=== PATIENT | male | born 1955 | race Caucasian/White ===

== ENCOUNTER 2017-11-08 11:53 | Observation (INO) | payer OTHER ==
--- NOTE | 2017-11-08 13:53 | EDM.PDOC ---
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, working outside hospital on construction project had L arm numbness x 1h, resolved after arrival here, BP inc'd on arrival (SBP 156), then came down to 134/80 no CP, possibly slight sob, no f/c/d smokes 1 ppd poor historian trop neg, however BNP inc'd for unclear reason EKG without LVH, does show QTc 496 K and Mg are both low, likely d/t working outside in hot environments, not on diuretic d/w hospitalist Dr Vanessa who accepted in admission for r/o PA pt reluctantly agrees, has colonoscopy and repair of anal fissure tomorrow with Dr Cole, is undergoing a bowel 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 and strongly encouraged pt to stay PCP is Dr Wallace Under L upper arm & MONTOYA Pain Score (Numeric/FACES): 5 - Related Data Allergies Allergy/AdvReac Type Severity Reaction Status Date / Time No Known Allergies Allergy Verified 11/08/17 12:16 Home Meds: Home Meds Aspirin [Lo-Dose Aspirin EC] 81 mg PO DAILY 01/29/16 [History] Calcium Carbonate [Calcium] 500 mg PO DAILY 01/29/16 [History] Metoprolol Succinate 100 mg PO DAILY 01/29/16 [History] Past Medical History Cardiovascular History: Reports: Hypertension Gastrointestinal History: Reports: GERD Genitourinary History: Reports: Pyelonephritis, Renal Calculus Musculoskeletal History: Reports: Arthritis Neurological History: Reports: Migraines Psychiatric History: Reports: Addiction, Anxiety, Depression Other Psychiatric History: hx ETOH abuse Endocrine/Metabolic History: Reports: Obesity/BMI 30+, Other (See Below) Other Endocrine/Metabolic History: 'spot on R thyroid, benign' Dermatologic History: Reports: Eczema - Infectious Disease History Infectious Disease History: Reports: Chicken Pox, Mumps - Past Surgical History HEENT Surgical History: Reports: Cataract Surgery Other HEENT Surgeries/Procedures: bilat cataract Musculoskeletal Surgical History: Reports: Shoulder Surgery Other Musculoskeletal Surgeries/Procedures:: R rotator cuff surgery Social & Family History - Family History Family Medical History: Noncontributory - Tobacco Use Smoking Status *Q: Current Every Day Smoker Years of Tobacco use: 47 Packs/Tins Daily: 1 - Caffeine Use Caffeine Use: Reports: Soda - Recreational Drug Use Recreational Drug Use: No ED ROS GENERAL - Review of Systems Review Of Systems: See Below Constitutional: Reports: No Symptoms HEENT: Reports: No Symptoms Respiratory: Reports: No Symptoms Cardiovascular: Reports: No Symptoms Endocrine: Reports: No Symptoms GI/Abdominal: Reports: No Symptoms : Reports: No Symptoms Musculoskeletal: Reports: Other (left arm numb) Skin: Reports: No Symptoms Neurological: Reports: No Symptoms Psychiatric: Reports: No Symptoms Hematologic/Lymphatic: Reports: No Symptoms Immunologic: Reports: No Symptoms ED EXAM, GENERAL - Physical Exam Exam: See Below Exam Limited By: No Limitations General Appearance: Alert, WD/WN, No Apparent Distress Nose: Normal Inspection, Normal Mucosa, No Blood Throat/Mouth: Normal Inspection, Normal Lips, Normal Teeth, Normal Gums, Normal Oropharynx, Normal Voice, No Airway Compromise Head: Atraumatic, Normocephalic Neck: Normal Inspection, Supple, Non-Tender, Full Range of Motion Respiratory/Chest: No Respiratory Distress, Lungs Clear, Normal Breath Sounds, No Accessory Muscle Use, Chest Non-Tender Cardiovascular: Regular Rate, Rhythm, No Edema, No Gallop, No JVD, No Murmur, No Rub GI/Abdominal: Normal Bowel Sounds, Soft, Non-Tender, No Distention, No Mass Back Exam: Normal Inspection, Full Range of Motion, NT Extremities: Normal Inspection, Normal Range of Motion, Non-Tender, No Pedal Edema Neurological: Alert, Oriented, CN II-XII Intact, Normal Cognition, No Motor/ Sensory Deficits Psychiatric: Normal Affect, Normal Mood Skin Exam: Warm, Dry, Intact, Normal Color, No Rash Lymphatic: No Adenopathy Course - Vital Signs Last Recorded V/S: Last Vital Signs Temp 36.6 C 11/08/17 11:53 Pulse 104 H 11/08/17 11:53 Resp 18 11/08/17 11:53 BP 190/95 H 11/08/17 11:53 Pulse Ox 98 11/08/17 11:53 - Orders/Labs/Meds Orders: Active Orders 24 hr Category Date Time Status Chest 1V Frontal [CR] Stat Exams 11/08/17 12:16 Taken EKG 12 Lead [EK] Routine Ther 11/08/17 12:15 Ordered Labs: Laboratory Tests 11/08/17 11/08/17 11/08/17 Range/Units 12:32 12:32 12:32 WBC 11.7 (4.5-12.0) X10-3/uL RBC 5.39 (4.30-5.75) x10(6)uL Hgb 15.6 H (11.5-15.5) g/dL Hct 45.6 (30.0-51.3) % MCV 84.5 (80-96) fL MCH 29.0 (27.7-33.6) pg MCHC 34.3 (32.2-35.4) g/dL RDW 12.8 (11.5-15.5) % Plt Count 305 (125-369) X10(3)uL MPV 7.8 (7.4-10.4) fL Neut % (Auto) 75.0 (46-82) % Lymph % (Auto) 17.3 (13-37) % [place] % (Auto) 6.7 (4-12) % Eos % (Auto) 1 (1.0-5.0) % Baso % (Auto) 1 (0-2) % Neut # (Auto) 8.7 H (1.6-8.3) # Lymph # (Auto) 2.0 (0.6-5.0) # [place] # (Auto) 0.8 (0.0-1.3) # Eos # (Auto) 0.1 (0.0-0.8) # Baso # (Auto) 0.1 (0.0-0.2) # D-Dimer, Quantitative < 100 L (100-400) ng/mL Sodium 134 L (135-145) mmol/L Potassium 3.3 L (3.5-5.3) mmol/L Chloride 98 L (100-110) mmol/L Carbon Dioxide 24 (21-32) mmol/L BUN 17 (7-18) mg/dL Creatinine 1.1 (0.70-1.30) mg/dL Est Cr Clr Drug Dosing 71.89 mL/min Estimated GFR (MDRD) > 60 (>60) BUN/Creatinine Ratio 15.5 (9-20) Glucose 115 (80-116) mg/dL Calcium 9.4 (8.6-10.2) mg/dL Magnesium 1.7 L (1.8-2.5) mg/dL Total Bilirubin 1.0 (0.1-1.3) mg/dL AST 14 (5-25) IU/L ALT 21 (12-36) U/L Alkaline Phosphatase 108 (56-112) IU/L Troponin I (<0.017-0.056) ng/mL NT-Pro-B Natriuret Pep (<=125) pg/mL Total Protein 7.5 (6.0-8.0) g/dL Albumin 3.9 (3.2-4.6) g/dL Globulin 3.6 g/dL Albumin/Globulin Ratio 1.1 /01/19 Range/Units 12:32 WBC (4.5-12.0) X10-3/uL RBC (4.30-5.75) x10(6)uL Hgb (11.5-15.5) g/dL Hct (30.0-51.3) % MCV (80-96) fL MCH (27.7-33.6) pg MCHC (32.2-35.4) g/dL RDW (11.5-15.5) % Plt Count (125-369) X10(3)uL MPV (7.4-10.4) fL Neut % (Auto) (46-82) % Lymph % (Auto) (13-37) % [place] % (Auto) (4-12) % Eos % (Auto) (1.0-5.0) % Baso % (Auto) (0-2) % Neut # (Auto) (1.6-8.3) # Lymph # (Auto) (0.6-5.0) # [place] # (Auto) (0.0-1.3) # Eos # (Auto) (0.0-0.8) # Baso # (Auto) (0.0-0.2) # D-Dimer, Quantitative (100-400) ng/mL Sodium (135-145) mmol/L Potassium (3.5-5.3) mmol/L Chloride (100-110) mmol/L Carbon Dioxide (21-32) mmol/L BUN (7-18) mg/dL Creatinine (0.70-1.30) mg/dL Est Cr Clr Drug Dosing mL/min Estimated GFR (MDRD) (>60) BUN/Creatinine Ratio (9-20) Glucose (80-116) mg/dL Calcium (8.6-10.2) mg/dL Magnesium (1.8-2.5) mg/dL Total Bilirubin (0.1-1.3) mg/dL AST (5-25) IU/L ALT (12-36) U/L Alkaline Phosphatase (56-112) IU/L Troponin I < 0.017 L (<0.017-0.056) ng/mL NT-Pro-B Natriuret Pep 451 H (<=125) pg/mL Total Protein (6.0-8.0) g/dL Albumin (3.2-4.6) g/dL Globulin g/dL Albumin/Globulin Ratio Departure - Departure Time of Disposition: 13:54 Disposition: Refer to Observation Clinical Impression: Left arm numbness, Anginal equivalent, Elevated brain natriuretic peptide (BNP ) level, Hypokalemia, Hypomagnesemia, Prolonged QT interval, Current smoker Referrals: Preston Tavarez MD [Primary Care Provider] - - My Orders Last 24 Hours: My Active Orders 11/08/17 12:15 EKG 12 Lead [EK] Routine 11/08/17 12:16 Chest 1V Frontal [CR] Stat - Assessment/Plan Last 24 Hours: My Active Orders 11/08/17 12:15 EKG 12 Lead [EK] Routine 11/08/17 12:16 Chest 1V Frontal [CR] Stat
[2017-11-08] MEDS ORDERED: Potassium Chloride 20 MEQ Tab.ER PO ONE (13:56)
[2017-11-08] MEDS ORDERED: Magnesium Sulfate/Water 2 GM in Premix Bag 1 BAG IV ONE (13:57)
--- NOTE | 2017-11-08 14:44 | CR ---
INDICATION: Left arm numb. CHEST: A portable AP upright view of the chest 11/08/2017 was compared with , again revealing the heart to be normal in size and shape. The aorta is somewhat tortuous with minimal calcification suggested in the arch. Overlying EKG leads are noted. Lungs appear to be somewhat hyperaerated, raising question of obstructive airway disease - correlate clinically. An active infiltrate or effusion was not identified. IMPRESSION: No acute process. MTDD
[2017-11-08] MEDS ORDERED: Nitroglycerin 0.4 MG Tab.SL SL PRN (15:40)
[2017-11-08] MEDS ORDERED: Sodium Chloride 0.9% 10 ML Syringe FLUSH PRN (15:40)
[2017-11-08] MEDS ORDERED: Potassium Chloride 20 MEQ Tab.ER ONE (16:27)
[2017-11-08] MEDS ORDERED: Magnesium Sulfate/Water 50 ML ONE (16:32)
[2017-11-08] MEDS ORDERED: Aspirin 81 MG Tab.Chew PO STA (17:00)
[2017-11-08] MEDS ORDERED: Aspirin 81 MG Tab.Chew PO ONE (17:00)
--- NOTE | 2017-11-09 07:19 | PCM.HP ---
H&P History of Present Illness - General Date of Service: 11/08/17 (Patient seen, examined and HP done on day of admission. Documented late due to EMR being down.) Admit Problem/Dx: Left arm "weirdness" in the axilla. Source of Information: Patient, Provider History Limitations: Reports: Other (Unable to access old records due to EMR down. Patient speech very tangential. ) - History of Present Illness Initial Comments - Free Text/Narative: Patient is a 61-year-old male who presented on the day of admission with an hour of left axillary discomfort. It just felt "weird" under his armpit. 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 He waited about 30 minutes and it didn't go away so he presented to the emergency department for further evaluation. EKG and troponin were initially negative. He had a slightly elevated BNP, a low magnesium, and a low potassium. I was asked to see the patient and admit him for further monitoring and to rule out atypical CT. The patient had some hand numbness with this discomfort. He had a similar episode 2 years ago which was evaluated in the ER and he was discharged home with no concerns for cardiac etiology. He takes a baby aspirin at home and metoprolol 100 mg of succinate daily. He denies associated symptoms like shortness of breath, dizziness, neck or jaw pain, anterior chest discomfort, GI symptoms. He denies a history of heart attack or stroke in the past, denies a history of hyperlipidemia, denies a history of coronary artery disease in the past. Notes he has anxiety and depression with such significant mental health issues that he has been hospitalized for psychiatry in [place], although was really unable to explain to me what that hospitalization was about. He has hypertension. Social history: The patient lives alone but has a fianc that he is waiting to until he turned 64. He has 2 daughters. 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 He smokes between a half to a pack of cigarettes per day. Quit drinking alcohol 34 years ago. Denies other drug use. Family history: Denies any history of coronary artery disease in the family. As far as he knows neither his mother, father, 2 brothers, or 2 sisters had any heart attacks or strokes. His mother at 68 from some type of dementia and was in a shelter. His father in his 80s from old age. He has 2 brothers and 2 sisters both of whom are healthy although one of his sisters has bipolar disorder. Under L upper arm & MONTOYA Pain Score (Numeric/FACES): 0 - Related Data Allergies/Adverse Reactions: Allergies Allergy/AdvReac Type Severity Reaction Status Date / Time No Known Allergies Allergy Verified 11/08/17 12:16 Home Medications: Home Meds Aspirin [Lo-Dose Aspirin EC] 81 mg PO DAILY 01/29/16 [History] Calcium Carbonate [Calcium] 500 mg PO DAILY 01/29/16 [History] Metoprolol Succinate 100 mg PO DAILY 01/29/16 [History] Past Medical History Cardiovascular History: Reports: Hypertension Gastrointestinal History: Reports: GERD Genitourinary History: Reports: Pyelonephritis, Renal Calculus Musculoskeletal History: Reports: Arthritis Neurological History: Reports: Migraines Psychiatric History: Reports: Addiction, Anxiety, Depression Other Psychiatric History: hx ETOH abuse Endocrine/Metabolic History: Reports: Obesity/BMI 30+, Other (See Below) Other Endocrine/Metabolic History: 'spot on R thyroid, benign' Dermatologic History: Reports: Eczema - Infectious Disease History Infectious Disease History: Reports: Chicken Pox, Mumps - Past Surgical History HEENT Surgical History: Reports: Cataract Surgery Other HEENT Surgeries/Procedures: bilat cataract Musculoskeletal Surgical History: Reports: Shoulder Surgery Other Musculoskeletal Surgeries/Procedures:: R rotator cuff surgery Social & Family History - Family History Family Medical History: Noncontributory - Tobacco Use Smoking Status *Q: Current Every Day Smoker Years of Tobacco use: 47 Packs/Tins Daily: 1 - Caffeine Use Caffeine Use: Reports: Soda - Recreational Drug Use Recreational Drug Use: No H&P Review of Systems - Review of Systems: Review Of Systems: ROS reveals no pertinent complaints other than HPI. Exam - Exam Exam: See Below - Vital Signs Vital Signs: Last Vital Signs Temp 36.9 C 11/08/17 14:54 Pulse 98 11/08/17 14:54 Resp 14 11/08/17 14:54 BP 148/80 H 11/08/17 14:54 Pulse Ox 97 11/08/17 14:54 Weight: 94.347 kg - Exam General: Alert, Oriented, Cooperative (Although the patient is alert oriented and cooperative, his speech is tangential, it's difficult to get him back on to the topic. Somewhat circular logic or reasoning. Has times where he seems to struggle with word finding and at times takes significant repetition to answer a question.) HEENT: PERRLA, Conjunctiva Clear, Mucosa Moist & [place], Posterior Pharynx Clear Neck: Supple Lungs: Clear to Auscultation, Normal Respiratory Effort Cardiovascular: Regular Rate, Regular Rhythm, Normal S1, Normal S2 GI/Abdominal Exam: Normal Bowel Sounds, Soft, Non-Tender, No Distention Extremities: No Pedal Edema Psychiatric: Alert, Normal Affect, Normal Mood - Patient Data Lab Results Last 24 hrs: Laboratory Results - last 24 hr 11/08/17 11/08/17 11/08/17 Range/Units 12:32 12:32 12:32 WBC 11.7 (4.5-12.0) X10-3/uL RBC 5.39 (4.30-5.75) x10(6)uL Hgb 15.6 H (11.5-15.5) g/dL Hct 45.6 (30.0-51.3) % MCV 84.5 (80-96) fL MCH 29.0 (27.7-33.6) pg MCHC 34.3 (32.2-35.4) g/dL RDW 12.8 (11.5-15.5) % Plt Count 305 (125-369) X10(3)uL MPV 7.8 (7.4-10.4) fL Neut % (Auto) 75.0 (46-82) % Lymph % (Auto) 17.3 (13-37) % [place] % (Auto) 6.7 (4-12) % Eos % (Auto) 1 (1.0-5.0) % Baso % (Auto) 1 (0-2) % Neut # (Auto) 8.7 H (1.6-8.3) # Lymph # (Auto) 2.0 (0.6-5.0) # [place] # (Auto) 0.8 (0.0-1.3) # Eos # (Auto) 0.1 (0.0-0.8) # Baso # (Auto) 0.1 (0.0-0.2) # D-Dimer, Quantitative < 100 L (100-400) ng/mL Sodium 134 L (135-145) mmol/L Potassium 3.3 L (3.5-5.3) mmol/L Chloride 98 L (100-110) mmol/L Carbon Dioxide 24 (21-32) mmol/L BUN 17 (7-18) mg/dL Creatinine 1.1 (0.70-1.30) mg/dL Est Cr Clr Drug Dosing 71.89 mL/min Estimated GFR (MDRD) > 60 (>60) BUN/Creatinine Ratio 15.5 (9-20) Glucose 115 (80-116) mg/dL Calcium 9.4 (8.6-10.2) mg/dL Magnesium 1.7 L (1.8-2.5) mg/dL Total Bilirubin 1.0 (0.1-1.3) mg/dL AST 14 (5-25) IU/L ALT 21 (12-36) U/L Alkaline Phosphatase 108 (56-112) IU/L Troponin I (<0.017-0.056) ng/mL NT-Pro-B Natriuret Pep (<=125) pg/mL Total Protein 7.5 (6.0-8.0) g/dL Albumin 3.9 (3.2-4.6) g/dL Globulin 3.6 g/dL Albumin/Globulin Ratio 1.1 11/08/17 11/08/17 Range/Units 12:32 20:05 WBC (4.5-12.0) X10-3/uL RBC (4.30-5.75) x10(6)uL Hgb (11.5-15.5) g/dL Hct (30.0-51.3) % MCV (80-96) fL MCH (27.7-33.6) pg MCHC (32.2-35.4) g/dL RDW (11.5-15.5) % Plt Count (125-369) X10(3)uL MPV (7.4-10.4) fL Neut % (Auto) (46-82) % Lymph % (Auto) (13-37) % [place] % (Auto) (4-12) % Eos % (Auto) (1.0-5.0) % Baso % (Auto) (0-2) % Neut # (Auto) (1.6-8.3) # Lymph # (Auto) (0.6-5.0) # [place] # (Auto) (0.0-1.3) # Eos # (Auto) (0.0-0.8) # Baso # (Auto) (0.0-0.2) # D-Dimer, Quantitative (100-400) ng/mL Sodium (135-145) mmol/L Potassium (3.5-5.3) mmol/L Chloride (100-110) mmol/L Carbon Dioxide (21-32) mmol/L BUN (7-18) mg/dL Creatinine (0.70-1.30) mg/dL Est Cr Clr Drug Dosing mL/min Estimated GFR (MDRD) (>60) BUN/Creatinine Ratio (9-20) Glucose (80-116) mg/dL Calcium (8.6-10.2) mg/dL Magnesium (1.8-2.5) mg/dL Total Bilirubin (0.1-1.3) mg/dL AST (5-25) IU/L ALT (12-36) U/L Alkaline Phosphatase (56-112) IU/L Troponin I < 0.017 L < 0.017 L (<0.017-0.056) ng/mL NT-Pro-B Natriuret Pep 451 H (<=125) pg/mL Total Protein (6.0-8.0) g/dL Albumin (3.2-4.6) g/dL Globulin g/dL Albumin/Globulin Ratio Result Diagrams: 11/08/17 12:32 11/08/17 12:32 Imaging Impressions Last 24 hrs: CXR negative. EKG INTERPRETATION EKG Date: 11/08/17 (Negative EKG, however QTc slightly long at 496.) Rhythm: NSR - Problem List (1) Anginal equivalent SNOMED Code(s): 737092156 ICD Code: I20.8 - OTHER FORMS OF ANGINA PECTORIS Status: Acute Problem Details: I think this is very unlikely to be coronary artery disease. However the patient does have some risk factors including hypertension and smoking. He also is a difficult historian so I think it is prudent to admit for serial troponins and electrolyte replacement and then patient can be discharged in the morning when he rules out. (2) Current smoker SNOMED Code(s): 96138130 ICD Code: F17.200 - NICOTINE DEPENDENCE, UNSPECIFIED, UNCOMPLICATED Status : Acute Problem Details: Nicotine replacement as needed. (3) Hypertension SNOMED Code(s): 19667287 ICD Code: I10 - ESSENTIAL (PRIMARY) HYPERTENSION Status: Acute Problem Details: A little high. May require additional medication. Monitor. Qualifiers: Hypertension type: essential hypertension Qualified Code(s): I10 - Essential (primary) hypertension (4) Hypokalemia SNOMED Code(s): 05664878 ICD Code: E87.6 - HYPOKALEMIA Status: Acute Problem Details: ER replaced at 40 mEq. (5) Hypomagnesemia SNOMED Code(s): 938437815 ICD Code: E83.42 - HYPOMAGNESEMIA Status: Acute Problem Details: Replace with 2 g IV. Check an a.m. (6) Prolonged QT interval SNOMED Code(s): 251583944 ICD Code: R94.31 - ABNORMAL ELECTROCARDIOGRAM [ECG] [EKG] Status: Acute Problem Details: Monitor with telemetry. (7) DVT prophylaxis SNOMED Code(s): 807211142, 021468053 ICD Code: DBZ8222 - Status: Acute Problem Details: Early ambulation. Problem List Initiated/Reviewed/Updated: Yes Orders Last 24hrs: Active Orders 24 hr Category Date Time Status EKG 12 Lead [EK] Routine Ther 11/08/17 12:15 Ordered Assessment/Plan Comment:: CODE STATUS discussed with the patient. He "wants to live a long time" would like to be a full code.
[2017-11-09] MEDS ORDERED: Metoprolol Succinate 100 MG Tab.ER PO SCH (09:00)
[2017-11-09] MEDS ORDERED: Aspirin 81 MG Tab.EC PO SCH (09:00)
== END 2017-11-08 21:54 | disposition left against medical advice (07) ==
LOC: FB.ED 11:53 → FB.MS 14:30
PROVIDERS: ADMIT Family Medicine; ATTEND Family Medicine
DX: I20.8 Other forms of angina pectoris (principal); E87.6 Hypokalemia; E83.42 Hypomagnesemia; R94.31 Abnormal electrocardiogram [ECG] [EKG]; F41.9 Anxiety disorder, unspecified; F32.9 Major depressive disorder, single episode, unspecified; F17.210 Nicotine dependence, cigarettes, uncomplicated; I10 Essential (primary) hypertension; K21.9 Gastro-esophageal reflux disease without esophagitis; M19.90 Unspecified osteoarthritis, unspecified site; G43.909 Migraine, unspecified, not intractable, without status migrainosus; E66.9 Obesity, unspecified; Z79.82 Long term (current) use of aspirin; Z79.899 Other long term (current) drug therapy; Z68.30 Body mass index [BMI] 30.0-30.9, adult
CPT/HCPCS: 36415; 71045; 80053; 83735; 83880; 84484; 85025; 85379; 93005; 99285; A9270; G0378; J3475; J7050

== ENCOUNTER 2024-10-25 17:26 | Inpatient (IN) | payer OTHER, MEDICARE ==
[2024-10-25 18:28] LABS: HEMATOCRIT 33.6 % (38.3-50.1); HEMOGLOBIN 11.5 g/dL (12.9-17.7); MEAN CORPUSCULAR HEMOGLOBIN 28.6 pg (27.0-33.3); MEAN CORPUSCULAR HGB CONC 34.2 g/dL (28.7-35.3); MEAN CORPUSCULAR VOLUME 83.6 fL (80.8-98.7); MEAN PLATELET VOLUME 6.7 fL (6.7-11.0); PLATELET COUNT,PLT 372 x10(3)uL (117-477); RED BLOOD CELL COUNT 4.02 x10(6)uL (3.90-5.90); RED CELL DISTRIBUTION WIDTH 15.6 % (12.4-15.0); WHITE BLOOD CELL COUNT,WBC 15.6 x10-3/uL (3.2-10.1)
[2024-10-25 18:34] LABS: BLOOD UREA NITROGEN,BUN 17 mg/dL (7-18); BUN/CREATININE RATIO 12.1 (9-20); CARBON DIOXIDE,CO2 28 mmol/L (21-32); CHLORIDE,CL 105 mmol/L (100-110); CREATININE 1.4 mg/dL (0.70-1.30); ESTIMATED GFR 54 mL/min (>60); GLUCOSE RANDOM 131 mg/dL (80-116); POTASSIUM,K 3.7 mmol/L (3.5-5.3); SODIUM,NA 142 mmol/L (135-145)
[2024-10-25 18:41] LABS: A/G RATIO 0.7; ALANINE AMINOTRANSFERASE,ALT 102 U/L (12-36); ALBUMIN 2.9 g/dL (3.2-4.6); ALKALINE PHOSPHATASE 268 IU/L (56-112); ASPARTATE AMNIOTRANSFERASE,AST 33 IU/L (5-25); BILIRUBIN TOTAL 0.6 mg/dL (0.1-1.3); PROTEIN TOTAL,TP 6.9 g/dL (6.0-8.0)
[2024-10-25 18:53] LABS: LYMPHOCYTES PERCENT MAN 11 % (13-37); MONOCYTES PERCENT MAN 6 % (4-12); SEG NEUTROPHILS PERCENT MAN 83 % (46-82)
[2024-10-25] MEDS ORDERED: Ondansetron 4 MG/2 ML SDV IV PRN (18:53)
[2024-10-25 18:54] LABS: ANISOCYTOSIS RARE; POIKILOCYTOSIS FEW
[2024-10-25 19:02] LABS: LACTIC ACID 1.1 mmol/L (0.4-2.0)
[2024-10-25 21:15] LABS: BILIRUBIN,URINE NEGATIVE (NEGATIVE); COLOR,URINE YELLOW (YELLOW); GLUCOSE,URINE NORMAL (NORMAL); KETONES,URINE NEGATIVE (NEGATIVE); LEUKOCYTE ESTERASE,URINE SMALL (NEGATIVE); NITRITE,URINE NEGATIVE (NEGATIVE); OCCULT BLOOD,URINE NEGATIVE (NEGATIVE); PROTEIN,URINE NEGATIVE (NEGATIVE); UROBILINOGEN,URINE 1 mg/dL (NEGATIVE)
[2024-10-25 21:16] LABS: APPEARANCE,URINE SLIGHTLY CLOUDY (CLEAR)
[2024-10-25 21:24] LABS: BACTERIA,URINE MANY (NS); RBC,URINE 0-5 (0-5); SQUAMOUS EPITHELIAL CELLS,UR NOT SEEN (NS,R,O)
[2024-10-25 21:25] LABS: HYALINE CASTS,URINE FEW (NS)
[2024-10-25] MEDS: traZODone 50 MG Tab PO SCH (23:44)
[2024-10-25] MEDS: Carvedilol 12.5 MG Tab PO SCH (23:44)
[2024-10-25] MEDS: LITHIUM CARBONATE 450 MG PO SCH (23:45)
[2024-10-25] MEDS: Enoxaparin 40 MG/0.4 ML Syringe SUBCUT SCH (23:45)
[2024-10-26] MEDS ORDERED: Haloperidol Lactate 5 MG/ML SDV IM ONE (03:51)
[2024-10-26 07:35] LABS: BLOOD UREA NITROGEN,BUN 16 mg/dL (7-18); BUN/CREATININE RATIO 13.3 (9-20); CALCIUM 8.7 mg/dL (8.6-10.2); CARBON DIOXIDE,CO2 26 mmol/L (21-32); CHLORIDE,CL 104 mmol/L (100-110); CREATININE 1.2 mg/dL (0.70-1.30); EST CRCL DRUG DOSING (CG) 59.99 mL/min; ESTIMATED GFR 65 mL/min (>60); GLUCOSE RANDOM 112 mg/dL (80-116); POTASSIUM,K 3.9 mmol/L (3.5-5.3); SODIUM,NA 139 mmol/L (135-145)
[2024-10-26 07:36] LABS: A/G RATIO 0.7; ALANINE AMINOTRANSFERASE,ALT 93 U/L (12-36); ALBUMIN 2.9 g/dL (3.2-4.6); ALKALINE PHOSPHATASE 250 IU/L (56-112); ASPARTATE AMNIOTRANSFERASE,AST 28 IU/L (5-25); PROTEIN TOTAL,TP 6.8 g/dL (6.0-8.0)
[2024-10-26 07:55] LABS: HEMATOCRIT 35.1 % (38.3-50.1); HEMOGLOBIN 11.7 g/dL (12.9-17.7); MEAN CORPUSCULAR HEMOGLOBIN 28.9 pg (27.0-33.3); MEAN CORPUSCULAR HGB CONC 33.2 g/dL (28.7-35.3); MEAN PLATELET VOLUME 7.2 fL (6.7-11.0); PLATELET COUNT,PLT 328 x10(3)uL (117-477); RED BLOOD CELL COUNT 4.04 x10(6)uL (3.90-5.90); RED CELL DISTRIBUTION WIDTH 15.4 % (12.4-15.0); WHITE BLOOD CELL COUNT,WBC 16.2 x10-3/uL (3.2-10.1)
[2024-10-26 08:12] LABS: BAND PERCENT MAN 1 % (0-6); EOSINOPHILS PERCENT MAN 3 % (0-5); LYMPHOCYTES PERCENT MAN 6 % (13-37); MONOCYTES PERCENT MAN 8 % (4-12); SEG NEUTROPHILS PERCENT MAN 82 % (46-82)
[2024-10-26] MEDS: QUEtiapine 100 MG Tab PO SCH (08:32)
[2024-10-26] MEDS: Haloperidol Lactate 5 MG/ML SDV ONE (08:33)
[2024-10-26] MEDS: QUEtiapine 25 MG Tab PO SCH (08:33)
[2024-10-26] MEDS: Aspirin 81 MG Tab.EC PO SCH (08:34)
[2024-10-26] MEDS: Famotidine 20 MG Tab PO SCH (08:34)
[2024-10-26] MEDS: Tamsulosin 0.4 MG Cap.ER PO SCH (08:34)
[2024-10-26] MEDS: Multivitamin Tab PO SCH (08:36)
[2024-10-26] MEDS: Loratadine 10 MG Tab PO SCH (08:36)
[2024-10-26] MEDS: lamoTRIgine 100 MG Tab PO SCH (08:36)
[2024-10-26] MEDS ORDERED: Non-Formulary Medication 1 Each (Cetirizine [Zyrtec] 10 MG Tablet) PO SCH (09:00)
[2024-10-26] MEDS: Memantine 10 MG Tab PO SCH (13:56)
[2024-10-26] MEDS: Spironolactone 25 MG Tab PO SCH (13:56)
[2024-10-26] MEDS: Gabapentin 100 MG Cap PO SCH (13:58)
[2024-10-26] MEDS: atorvaSTATin 40 MG Tab PO SCH (20:58)
[2024-10-27 07:31] LABS: HEMATOCRIT 32.9 % (38.3-50.1); HEMOGLOBIN 10.9 g/dL (12.9-17.7); MEAN CORPUSCULAR HEMOGLOBIN 28.8 pg (27.0-33.3); MEAN CORPUSCULAR HGB CONC 33.1 g/dL (28.7-35.3); MEAN CORPUSCULAR VOLUME 86.7 fL (80.8-98.7); MEAN PLATELET VOLUME 7.2 fL (6.7-11.0); PLATELET COUNT,PLT 341 x10(3)uL (117-477); RED BLOOD CELL COUNT 3.79 x10(6)uL (3.90-5.90); WHITE BLOOD CELL COUNT,WBC 15.6 x10-3/uL (3.2-10.1)
[2024-10-27 07:32] LABS: BLOOD UREA NITROGEN,BUN 22 mg/dL (7-18); BUN/CREATININE RATIO 15.7 (9-20); CARBON DIOXIDE,CO2 27 mmol/L (21-32); CHLORIDE,CL 104 mmol/L (100-110); CREATININE 1.4 mg/dL (0.70-1.30); EST CRCL DRUG DOSING (CG) 51.42 mL/min; ESTIMATED GFR 54 mL/min (>60); GLUCOSE RANDOM 95 mg/dL (80-116); POTASSIUM,K 4.2 mmol/L (3.5-5.3); SODIUM,NA 139 mmol/L (135-145)
[2024-10-27 08:08] LABS: EOSINOPHILS PERCENT MAN 2 % (0-5); LYMPHOCYTES PERCENT MAN 15 % (13-37); MONOCYTES PERCENT MAN 8 % (4-12); SEG NEUTROPHILS PERCENT MAN 75 % (46-82)
[2024-10-27] MEDS: Piperacillin/Tazobactam 4.5 GM in Sodium Chloride 0.9% 100 ML IV ONE (14:25)
[2024-10-27 14:54] LABS: INR 0.99 (1.00-1.24); PROTHROMBIN TIME 10.3 sec (9.0-11.1)
[2024-10-27] MEDS: Docusate Sodium 100 MG Cap PO PRN (16:26)
[2024-10-27] MEDS: Amoxicillin/Clavulanate K 875-125 MG Tab PO SCH (16:26)
[2024-10-27] MEDS ORDERED: Piperacillin/Tazobactam 4.5 GM in Sodium Chloride 0.9% 100 ML IV SCH (18:00)
[2024-10-28 06:58] LABS: BASOPHILS ABSOLUTE AUTO 0.1 x10-3/uL (0.0-0.3); BASOPHILS PERCENT AUTO 0.4 % (0.3-3.8); EOSINOPHILS ABSOLUTE AUTO 0.3 x10-3/uL (0.0-0.6); EOSINOPHILS PERCENT AUTO 2.5 % (0.1-6.8); HEMATOCRIT 31.4 % (38.3-50.1); HEMOGLOBIN 10.6 g/dL (12.9-17.7); LYMPHOCYTES PERCENT AUTO 15.4 % (15.8-45.3); MEAN CORPUSCULAR HGB CONC 33.7 g/dL (28.7-35.3); MONOCYTES PERCENT AUTO 8.1 % (5.5-15.2); NEUTROPHILS ABSOLUTE AUTO 9.4 x10-3/uL (1.7-6.9); NEUTROPHILS PERCENT AUTO 73.6 % (40.3-71.8); PLATELET COUNT,PLT 378 x10(3)uL (117-477); RED BLOOD CELL COUNT 3.78 x10(6)uL (3.90-5.90); RED CELL DISTRIBUTION WIDTH 15.4 % (12.4-15.0); WHITE BLOOD CELL COUNT,WBC 12.9 x10-3/uL (3.2-10.1)
[2024-10-28 07:04] LABS: BLOOD UREA NITROGEN,BUN 23 mg/dL (7-18); BUN/CREATININE RATIO 16.4 (9-20); CALCIUM 8.9 mg/dL (8.6-10.2); CARBON DIOXIDE,CO2 26 mmol/L (21-32); CHLORIDE,CL 103 mmol/L (100-110); CREATININE 1.4 mg/dL (0.70-1.30); EST CRCL DRUG DOSING (CG) 51.42 mL/min; ESTIMATED GFR 54 mL/min (>60); GLUCOSE RANDOM 98 mg/dL (80-116); SODIUM,NA 138 mmol/L (135-145)
[2024-10-28] MEDS: Acetaminophen 325 MG Tab PO PRN (17:13)
[2024-10-29 06:33] LABS: BASOPHILS ABSOLUTE AUTO 0.1 x10-3/uL (0.0-0.3); BASOPHILS PERCENT AUTO 0.6 % (0.3-3.8); EOSINOPHILS ABSOLUTE AUTO 0.4 x10-3/uL (0.0-0.6); EOSINOPHILS PERCENT AUTO 2.9 % (0.1-6.8); HEMATOCRIT 32.9 % (38.3-50.1); LYMPHOCYTES ABSOLUTE AUTO 1.5 x10-3/uL (0.5-4.5); LYMPHOCYTES PERCENT AUTO 12.1 % (15.8-45.3); MEAN CORPUSCULAR HEMOGLOBIN 27.9 pg (27.0-33.3); MEAN CORPUSCULAR HGB CONC 33.3 g/dL (28.7-35.3); MEAN CORPUSCULAR VOLUME 83.9 fL (80.8-98.7); MEAN PLATELET VOLUME 6.8 fL (6.7-11.0); MONOCYTES PERCENT AUTO 8.1 % (5.5-15.2); NEUTROPHILS ABSOLUTE AUTO 9.6 x10-3/uL (1.7-6.9); NEUTROPHILS PERCENT AUTO 76.3 % (40.3-71.8); PLATELET COUNT,PLT 370 x10(3)uL (117-477); RED BLOOD CELL COUNT 3.93 x10(6)uL (3.90-5.90); RED CELL DISTRIBUTION WIDTH 15.3 % (12.4-15.0); WHITE BLOOD CELL COUNT,WBC 12.6 x10-3/uL (3.2-10.1)
[2024-10-29] MEDS: Docusate Sodium 100 MG Cap PO SCH (13:40)
[2024-10-30] MEDS: traMADol 50 MG Tab PO PRN (05:43)
[2024-10-30] MEDS: Bisacodyl 5 MG Tab PO ONE (09:50)
[2024-10-30] MEDS: Polyethylene Glycol 3350 Powder 17 GM Packet PO SCH (18:37)
[2024-10-31] MEDS: Bisacodyl 10 MG Supp RECTAL ONE (14:52)
[2024-10-31 15:07] LABS: BASOPHILS ABSOLUTE AUTO 0.1 x10-3/uL (0.0-0.3); BASOPHILS PERCENT AUTO 0.4 % (0.3-3.8); EOSINOPHILS ABSOLUTE AUTO 0.4 x10-3/uL (0.0-0.6); EOSINOPHILS PERCENT AUTO 2.6 % (0.1-6.8); HEMATOCRIT 33.1 % (38.3-50.1); HEMOGLOBIN 11.2 g/dL (12.9-17.7); LYMPHOCYTES ABSOLUTE AUTO 1.4 x10-3/uL (0.5-4.5); LYMPHOCYTES PERCENT AUTO 9.7 % (15.8-45.3); MEAN CORPUSCULAR HEMOGLOBIN 28.2 pg (27.0-33.3); MEAN CORPUSCULAR HGB CONC 33.9 g/dL (28.7-35.3); MEAN CORPUSCULAR VOLUME 83.1 fL (80.8-98.7); MEAN PLATELET VOLUME 6.9 fL (6.7-11.0); MONOCYTES ABSOLUTE AUTO 1.1 x10-3/uL (0.0-1.2); MONOCYTES PERCENT AUTO 7.9 % (5.5-15.2); NEUTROPHILS ABSOLUTE AUTO 11.1 x10-3/uL (1.7-6.9); NEUTROPHILS PERCENT AUTO 79.4 % (40.3-71.8); PLATELET COUNT,PLT 353 x10(3)uL (117-477); RED BLOOD CELL COUNT 3.98 x10(6)uL (3.90-5.90); RED CELL DISTRIBUTION WIDTH 15.5 % (12.4-15.0)
[2024-10-31 15:10] LABS: BLOOD UREA NITROGEN,BUN 22 mg/dL (7-18); BUN/CREATININE RATIO 13.8 (9-20); CALCIUM 9.1 mg/dL (8.6-10.2); CARBON DIOXIDE,CO2 27 mmol/L (21-32); CHLORIDE,CL 103 mmol/L (100-110); CREATININE 1.6 mg/dL (0.70-1.30); EST CRCL DRUG DOSING (CG) 44.99 mL/min; ESTIMATED GFR 46 mL/min (>60); GLUCOSE RANDOM 110 mg/dL (80-116); POTASSIUM,K 4.5 mmol/L (3.5-5.3); SODIUM,NA 137 mmol/L (135-145)
[2024-11-01 09:28] LABS: BASOPHILS ABSOLUTE AUTO 0.1 x10-3/uL (0.0-0.3); BASOPHILS PERCENT AUTO 0.6 % (0.3-3.8); EOSINOPHILS ABSOLUTE AUTO 0.4 x10-3/uL (0.0-0.6); LYMPHOCYTES ABSOLUTE AUTO 1.3 x10-3/uL (0.5-4.5); LYMPHOCYTES PERCENT AUTO 10.7 % (15.8-45.3); MEAN CORPUSCULAR HEMOGLOBIN 27.8 pg (27.0-33.3); MEAN CORPUSCULAR HGB CONC 33.4 g/dL (28.7-35.3); MEAN CORPUSCULAR VOLUME 83.4 fL (80.8-98.7); MEAN PLATELET VOLUME 6.9 fL (6.7-11.0); MONOCYTES ABSOLUTE AUTO 0.7 x10-3/uL (0.0-1.2); MONOCYTES PERCENT AUTO 5.4 % (5.5-15.2); NEUTROPHILS ABSOLUTE AUTO 10.2 x10-3/uL (1.7-6.9); NEUTROPHILS PERCENT AUTO 80.3 % (40.3-71.8); PLATELET COUNT,PLT 329 x10(3)uL (117-477); RED BLOOD CELL COUNT 3.96 x10(6)uL (3.90-5.90); RED CELL DISTRIBUTION WIDTH 15.6 % (12.4-15.0); WHITE BLOOD CELL COUNT,WBC 12.6 x10-3/uL (3.2-10.1)
== END 2024-11-03 13:25 | DRG 690 ==
LOC: FB.ED 17:26 → FB.MS 18:53
PROVIDERS: ADMIT Family Medicine; ATTEND Family Medicine
DX: N39.0 Urinary tract infection, site not specified (principal); Z16.39 Resistance to other specified antimicrobial drug; F02.84 Dementia in other diseases classified elsewhere, unspecified severity, with anxiety; F02.83 Dementia in other diseases classified elsewhere, unspecified severity, with mood disturbance; I50.22 Chronic systolic (congestive) heart failure; Z66 Do not resuscitate; M19.90 Unspecified osteoarthritis, unspecified site; K21.9 Gastro-esophageal reflux disease without esophagitis; G43.909 Migraine, unspecified, not intractable, without status migrainosus; F10.11 Alcohol abuse, in remission; B95.2 Enterococcus as the cause of diseases classified elsewhere; R53.81 Other malaise; K59.00 Constipation, unspecified; R26.2 Difficulty in walking, not elsewhere classified; F31.9 Bipolar disorder, unspecified; I11.0 Hypertensive heart disease with heart failure; E03.9 Hypothyroidism, unspecified; G30.0 Alzheimer's disease with early onset; Z98.42 Cataract extraction status, left eye; Z98.41 Cataract extraction status, right eye; S22.42XD Multiple fractures of ribs, left side, subsequent encounter for fracture with routine healing; S22.081D Stable burst fracture of T11-T12 vertebra, subsequent encounter for fracture with routine healing; V89.2XXD Person injured in unspecified motor-vehicle accident, traffic, subsequent encounter
CPT/HCPCS: 36415; 71045; 80048; 80053; 80178; 81001; 83605; 85025; 85610; 87086; 87088; 87186; 87426-QW; 97161-GP; 97166-GO; 97530-GP; 97535-GO; 99223; 99232; 99238; 99285; A9270-GY; J1630; J1650